=== PATIENT | male | born 1995 ===

== ENCOUNTER 2023-07-18 08:14 | Emergency (ER) | payer BC ==
[2023-07-18] MEDS: Sodium Chloride 0.9% 1,000 ML IV ONE (09:48)
[2023-07-18] MEDS: diphenhydrAMINE 50 MG/ML SDV IVPUSH ONE (09:48)
[2023-07-18] MEDS: Sodium Chloride 0.9% 10 ML Syringe FLUSH PRN (09:49)
[2023-07-18] MEDS: Sodium Chloride 0.9% 2.5 ML Syringe FLUSH PRN (09:49)
[2023-07-18 10:03] LABS: BASOPHILS ABSOLUTE AUTO 0.02 K/uL (0.00-0.20); BASOPHILS PERCENT AUTO 0.5 % (0.0-1.0); EOSINOPHILS ABSOLUTE AUTO 0.21 K/uL (0.00-0.45); EOSINOPHILS PERCENT AUTO 4.7 % (0.0-6.0); HEMOGLOBIN 15.6 g/dL (14.0-18.0); IMMATURE GRAN ABSOLUTE AUTO 0.02 K/uL (0.00-0.05); IMMATURE GRAN PERCENT AUTO 0.5 % (0.0-0.4); LYMPHOCYTES ABSOLUTE AUTO 0.65 K/uL (1.00-4.80); LYMPHOCYTES PERCENT AUTO 14.6 % (24.0-44.0); MEAN CORPUSCULAR HEMOGLOBIN 29.2 pg (28.0-32.0); MEAN CORPUSCULAR HGB CONC 34.7 g/dL (32.0-36.0); MEAN CORPUSCULAR VOLUME 84.3 fL (83.0-99.0); MEAN PLATELET VOLUME 11.1 fL (9.4-12.4); MONOCYTES ABSOLUTE AUTO 0.42 K/uL (0.00-0.80); MONOCYTES PERCENT AUTO 9.5 % (0.0-8.0); NEUTROPHILS ABSOLUTE AUTO 3.12 K/uL (1.80-7.70); NEUTROPHILS PERCENT AUTO 70.2 % (41.0-71.0); PLATELET COUNT,PLT 219 K/uL (150-400); RED BLOOD CELL COUNT 5.34 M/uL (4.52-5.90); WHITE BLOOD CELL COUNT,WBC 4.44 K/uL (3.9-11.3)
[2023-07-18 10:23] LABS: A/G RATIO 1.2 (0.9-1.6); ALBUMIN 4.4 g/dL (3.4-5.0); BILIRUBIN TOTAL 1.2 mg/dL (0.2-1.0); CALCIUM 9.3 mg/dL (8.5-10.1); CARBON DIOXIDE,CO2 25.6 mmol/L (21.0-32.0); CREATININE 1.1 mg/dL (0.8-1.3); EST CRCL DRUG DOSING (CG) 126.04 mL/min; POTASSIUM,K 3.6 mmol/L (3.5-5.1)
[2023-07-18 10:39] LABS: LACTIC ACID 0.7 mmol/L (0.4-2.0)
[2023-07-18] MEDS: methylPREDNISolone Sodium Succinate 125 MG/2 ML SDV IVPUSH ONE (11:13)
[2023-07-18] MEDS: Sulfamethoxazole/Trimethoprim 800-160 MG Tab PO ONE (11:13)
[2023-07-18 11:27] VITALS: BP 135/91; PULSE 87
== END 2023-07-18 11:26 | disposition home or self-care (01) ==
LOC: MW.ED 08:14
DX: L03.113 Cellulitis of right upper limb (principal); T78.49XA Other allergy, initial encounter; J45.909 Unspecified asthma, uncomplicated; Z79.899 Other long term (current) drug therapy; Z75.8 Other problems related to medical facilities and other health care
CPT/HCPCS: 36415; 80053; 83605; 85025; 87040; 96374; 96375; 99283; A9270; J1200; J2930; J3490; J7030; 99284

== ENCOUNTER 2024-10-22 22:21 | Emergency (ER) | payer BC ==
[2024-10-22 23:05] VITALS: BP 148/100; PULSE 72
[2024-10-22] MEDS: Bacitracin Oint 1 GM U/D Packet TOP ONE (23:18)
== END 2024-10-22 23:26 | disposition home or self-care (01) ==
LOC: MW.ED 22:21
DX: S62.522B Displaced fracture of distal phalanx of left thumb, initial encounter for open fracture (principal); J45.909 Unspecified asthma, uncomplicated; Z79.51 Long term (current) use of inhaled steroids; Z79.899 Other long term (current) drug therapy; W27.8XXA Contact with other nonpowered hand tool, initial encounter; Y93.89 Activity, other specified
CPT/HCPCS: 29125; 29130; 73140-26-FA; 73140-FA; 99283; 99283-25